=== PATIENT | female | born 2000 | race Two or more races ===

== ENCOUNTER 2024-03-16 22:06 | Emergency (ER) | payer MEDICAID, OTHER ==
[~2024-03-16] VITALS: Ht 154.9 cm; Wt 136.0 kg
[2024-03-16 22:17] VITALS: BP 139/93; PULSE 90; RESP 16; TEMP 98.8; O2SAT 98
[2024-03-17] MEDS ORDERED: CEPH500C PO (00:20)
[2024-03-17] MEDS ORDERED: CLOTCRE3 EX (00:20)
== END 2024-03-17 00:36 | disposition home or self-care (01) ==
LOC: ER 22:06
DX: O91.111 Abscess of breast associated with pregnancy, first trimester (principal); I48.91 Unspecified atrial fibrillation; Z3A.12 12 weeks gestation of pregnancy; Z79.899 Other long term (current) drug therapy

== ENCOUNTER 2024-08-26 16:04 | Emergency (ER) | payer MEDICAID ==
[~2024-08-26] VITALS: Ht 162.6 cm; Wt 135.6 kg
[~2024-08-26 16:04] MED LIST: CEPH500C PO; CLOTCRE3 EX
[2024-08-26 16:20] VITALS: BP 117/75; PULSE 54; RESP 18; TEMP 98.2; O2SAT 99
--- NOTE | 2024-08-26 16:21 | ED.PDOC ---
History of Present Illness HPI Comments 23 year old female presents to the ED with a chief complaint of low heart rate onset today (08/26/24). Patient states she was at [facility], was following up with OBGYN, was told HR was low, maintaining at 43 bpm. Patient states she was observed for 4 hours, HR remained the same. She was told Cardiology was busy, will not be able to be evaluated until tomorrow, decided to leave [facility] and came to [facility]. Patient is currently 38 weeks . PMHx A-fib. Denies dizziness, headache, blurry vision, numbness/tingling of extremitas, chest pain, shortness of breath. No other symptoms or modifying factors present at this time. Patient's heart rate was bounding at time of evaluation. Patient denies any symptoms stated she was asymptomatic. Time Seen by MD: 16:14 Primary Care Provider: Dr. Wang Reviewed Notes: Nurses Notes, Medications, Allergies Allergies: Uncoded Allergies: NO KNOWN (Allergy, Unknown, 03/16/24) Home Meds Active Scripts Clotrimazole W/ Betamethasone (Clotrimazole/Betamethason 1-0.05 %) 1 Cre Cre, 1 APPLIC EX BID for 7 Days, #15 GRAMS Prov:LIVAN [facility]UR[facility] 03/17/24 Cephalexin Monohydrate (Cephalexin) 500 Mg Cap, 1 CAP PO TID for 5 Days, #15 CAP Prov:LIVAN MURRIETA [facility] 03/17/24 Information Source: Patient Mode of Arrival: Ambulatory Severity: Moderate Timing: Hours Duration: Since onset Prehospital treatment: None Past Medical History PAST MEDICAL HISTORY: AFIB Surgical History: Denies all surgeries LOOP TENDER History: Denies all LOOP TENDER Hx, No Pertinent LOOP TENDER History Family History Family History: Reviewed,noncontributory to illness, No family hx of Cancer, No family hx of DM, No family hx of Heart crystal, No family hx of HTN, No family hx ofKidney crystal, No family hx of Liver crystal, No family hx of Lung crystal, No family hx of Stroke Social History Smoker: Non-Smoker Alcohol: Denies ETOH Use Drugs: Denies Drug Use Lives In: Home Constitutional: denies: chills, diaphoresis, fatigue, fever, malaise, sweats, weakness, others EENTM: denies: blurred vision, double vision, ear bleeding, ear discharge, ear drainage, ear pain, ear ringing, eye pain, eye redness, hearing loss, mouth pain, mouth swelling, nasal discharge, nose bleeding, nose congestion, nose pain, photophobia, tearing, throat pain, throat swelling, voice changes, others Respiratory: denies: cough, hemoptysis, orthopnea, SOB at rest, shortness of breath, SOB with excertion, stridor, wheezing, others Cardiovascular: reports: others (low heart rate); denies: chest pain, dizzy spells, diaphoresis, Dyspnea on exertion, edema, irregular heart beat, left arm pain, lightheadedness, palpitations, PND, syncope Gastrointestinal: denies: abdomen distended, abdominal pain, blood streaked bowels, constipated, diarrhea, dysphagia, difficulty swallowing, hematemesis, melena, nausea, poor appetite, poor fluid intake, rectal bleeding, rectal pain, vomiting, others Genitourinary: denies: abnormal vagina bleeding, burning, dyspareunia, dysuria, flank pain, frequency, hematuria, incontinence, pain, , vagina discharge, urgency, others Neurological: denies: dizziness, fainting, headache, left sided numbness, left sided weakness, numbness, paresthesia, pre-existing deficit, right sided numbness, right sided weakness, seizure, speech problems, tingling, tremors, weakness, others Musculoskeletal: denies: back pain, gout, joint pain, joint swelling, muscle p ain, muscle stiffness, neck pain, others Integumetry: denies: bruises, change in color, change in hair/nails, dryness, laceration, lesions, lumps, rash, wounds, others Allergic/Immunocompromised: denies: Difficulty Healing, Frequent Infections, Hives, Itching, others Hematologic/Lymphatic: denies: anemia, blood clots, easy bleeding, easy bruising, swollen glands, others Endocrine: denies: excessive hunger, excessive sweating, excessive thirst, excessive urination, flushing, intolerance to cold, intolerance to heat, unexplained weight gain, unexplained weight loss, others Psychiatric: denies: anxiety, bipolar disorder, depression, hopeless, panic disorder, schizophrenia, sleepless, suicidal, others All Other Systems: Reviewed and Negative Physical Exam General Appearance: No Apparent Distress (Patient was in no distress and asymptomatic at time of arrival.), Normal HEENT: Normal ENT Inspection, Pharynx Normal, TMs Normal Neck: Full Range of Motion, Non-Tender, Normal, Normal Inspection Respiratory: Chest Non-Tender, Lungs Clear, No Accessory Muscle Use, No Respiratory Distress, Normal Breath Sounds Cardiovascular: Bradycardia, No Edema, No JVD, No Murmur, No Gallop, Normal Peripheral Pulses Breast Exam: Deferred Gastrointestinal: No Organomegaly, Non Tender, No Pulsatile Mass, Normal Bowel Sounds, Soft Genitalia: Deferred Pelvic: Deferred Rectal: Deferred Extremities: No calf tenderness, Normal capillary refill, Normal inspection, Normal range of motion, Non-tender, No pedal edema Musculoskeletal : Apperance: Normal Neurologic: Alert, No Motor Deficits, Normal Affect, Normal Mood, No Sensory Deficits Cerebellar Function: Normal Reflexes: Normal Skin: Dry, Normal Color, Warm Lymphatic: No Adenopathy Was a procedure done? Was a procedure done?: No Differential Dx Considerations may include: Sinus bradycardia, acute coronary syndrome, tachycardia, AFib, arrhythmia, sepsis X-Ray, Labs, Meds, VS Vital Signs Date Time Temp Pulse Resp B/P (MAP) Pulse Ox O2 Delivery O2 Flow Rate FiO2 08/26/24 16:20 98.2 54 18 117/75 (89) 99 98.2 08/26/24 16:20 116 Lab Test 08/26/24 17:14 Range/Units White Blood Count 14.4 H 4.4-10.8 10^3/uL Red Blood Count 4.55 4.0-5.20 10^6/uL Hemoglobin 11.8 L 12.2-16.2 g/dL Hematocrit 36.2 36.0-46.0 % Mean Corpuscular Volume 79.6 L 80.0-100.0 fL Mean Corpuscular Hemoglobin 26.0 L 28.0-32.0 pg Mean Corpuscular Hemoglobin Concent 32.7 32.0-36.0 g/dL Red Cell Distribution Width 18.7 H 11.8-14.3 % Platelet Count 248 140-450 10^3/uL Mean Platelet Volume 9.1 6.9-10.8 fL Neutrophils (%) (Auto) 72.4 37.0-80.0 % Lymphocytes (%) (Auto) 18.4 10.0-50.0 % Monocytes (%) (Auto) 7.7 0.0-12.0 % Eosinophils (%) (Auto) 1.2 0.0-7.0 % Basophils (%) (Auto) 0.3 0.0-2.0 % Neutrophils # (Auto) 10.4 H 1.6-8.6 10 ^3/uL Lymphocytes # (Auto) 2.7 0.4-5.4 10 ^3/uL Monocytes # (Auto) 1.1 0-1.3 10 ^3/uL Eosinophils # (Auto) 0.2 0-0.8 10 ^3/uL Basophils # (Auto) 0 0-0.2 10 ^3/uL Nucleated Red Blood Cells 0.1 % Sodium Level 139 136-145 mmol/L Potassium Level 3.8 3.5-5.1 mmol/L Chloride Level 106 98-107 mmol/L Carbon Dioxide Level 23 20-31 mmol/L Anion Gap 10 5-15 Blood Urea Nitrogen 8 L 9-23 mg/dL Creatinine 0.60 0.550-1.02 mg/dL Glomerular Filtration Rate Calc 128 >90 mL/min BUN/Creatinine Ratio 13.3 10.0-20.0 Serum Glucose 99 74-106 mg/dL Calcium Level 9.9 8.7-10.4 mg/dL Total Bilirubin 0.5 0.2-1.0 mg/dL Aspartate Amino Transferase (AST) 11 L 13-40 U/L Alanine Aminotransferase (ALT) 15 7-40 U/L Alkaline Phosphatase 122 H 46-116 U/L Troponin I High Sensitivity < 3 L </=34 ng/L Total Protein 6.7 5.7-8.2 g/dL Albumin 3.8 3.2-4.8 g/dL X-Ray, Labs, Meds, VS Comment All studies performed the ED were evaluated by me personally. Serum laboratories revealed a mild leukocytosis but were otherwise unremarkable. EKG revealed a sinus tachycardia with a rate of 116. Ventricular bigeminy noted. NH interval of 142 and QT interval of 364. I was waiting on urine for over 2 hours to be provided by the patient, but nursing states it appears the patient has eloped from the facility. Time of 1ST Reevaluation: 21:10 Reevaluation 1ST: Unchanged Consultation: PCP, server support technician Patient Education/Counseling: Diagnosis, Treatment, Prognosis Family Education/Counseling: Diagnosis, Treatment, No Family Present Departure 1 Departure Time of Disposition: 21:11 Impression: Primary Impression: Bradycardia Disposition: 07 LEFT AWOL/ELOPED Condition: Stable Discharged With: Self Critical Care Note Critical Care Time?: No Stability Stability form required: No Heart Score Heart Score: Heart Score Response (Comments) Value History Slightly Suspicious 0 EKG Repolarization Disturb 1 Age <45 0 Risk Factors No known risk factors 0 Troponin Normal limit 0 Total 1 I personally scribed for EMMANUEL SWARTZ PAC ([email or web address]) on 08/26/24 at 16:21. Electronically submitted by Mercedez Daniels ([email or web address]). EMMANUEL SWARTZ PAC Aug 26, 2024 16:21
--- NOTE | 2024-08-26 16:21 | ECG ---
[facility] Test Date: 2024-08-26 Test Time: 16:20:27 Pat Name: SARKIS HERNANDEZ Department: ER Room: Gender: F [employer] Boat [employer]: SASHA : 2000 Requested By: EMMANUEL SWARTZ Order Number: [id number] Reading MD: Perfecto Robertson Measurements Intervals [place] Rate: 116 P: 39 MN: 142 QRS: -13 QRSD: 89 T: 29 QT: 364 QTc: 506 Interpretive Statements Sinus tachycardia Ventricular bigeminy Electronically Signed On 08-26-2024 17:47:58 PDT by Perfecto Robertson Please click the below link to view image of tracing.
[2024-08-26 18:24] LABS: Basophils # (auto) 0 10 ^3/uL (0-0.2); Basophils % (auto) 0.3 % (0.0-2.0); Eosinophils # (auto) 0.2 10 ^3/uL (0-0.8); Eosinophils % (auto) 1.2 % (0.0-7.0); Hematocrit 36.2 % (36.0-46.0); Hemoglobin 11.8 g/dL (12.2-16.2); Lymphocytes # (auto) 2.7 10 ^3/uL (0.4-5.4); Lymphocytes % (auto) 18.4 % (10.0-50.0); Mean Corpuscular Hgb Conc. 32.7 g/dL (32.0-36.0); Mean Corpuscular Volume 79.6 fL (80.0-100.0); Monocytes # (auto) 1.1 10 ^3/uL (0-1.3); Monocytes % (auto) 7.7 % (0.0-12.0); Neutrophils # (auto) 10.4 10 ^3/uL (1.6-8.6); Neutrophils % (auto) 72.4 % (37.0-80.0); Nucleated Red Blood Cells % 0.1 %; Platelet Count (auto) 248 10^3/uL (140-450); Red Blood Cells 4.55 10^6/uL (4.0-5.20); Red Cell Distribution Width 18.7 % (11.8-14.3); White Blood Cell 14.4 10^3/uL (4.4-10.8)
[2024-08-26 18:39] LABS: Alanine Aminotransferase 15 U/L (7-40); Albumin 3.8 g/dL (3.2-4.8); Anion Gap 10 (5-15); BUN/Creatinine Ratio 13.3 (10.0-20.0); Calcium 9.9 mg/dL (8.7-10.4); Carbon Dioxide 23 mmol/L (20-31); Chloride 106 mmol/L (98-107); Glucose 99 mg/dL (74-106); Potassium 3.8 mmol/L (3.5-5.1); Sodium 139 mmol/L (136-145); Total Protein 6.7 g/dL (5.7-8.2)
[2024-08-26 18:40] LABS: Bilirubin, Total 0.5 mg/dL (0.2-1.0)
[2024-08-26 18:42] LABS: Alkaline Phosphatase 122 U/L (46-116); Aspartate Aminotransferase 11 U/L (13-40); Blood Urea Nitrogen 8 mg/dL (9-23)
== END 2024-08-26 21:51 | disposition left against medical advice (07) ==
LOC: ER 16:04
DX: O99.413 Diseases of the circulatory system complicating pregnancy, third trimester (principal); R00.1 Bradycardia, unspecified; I48.91 Unspecified atrial fibrillation; Z3A.38 38 weeks gestation of pregnancy
CPT/HCPCS: 36415; 80053; 84484; 85025; 93005